=== PATIENT | female | born 1940 ===

== ENCOUNTER 2016-10-03 12:23 | Inpatient (IN) | payer MEDICARE, OTHER ==
[2016-10-03] MEDS ORDERED: Sodium Chloride 0.9% 500 ML IV STA (12:48)
--- NOTE | 2016-10-03 12:50 | ED PDOC ---
Arrival/HPI - General Chief Complaint: Abdominal Pain Time Seen by Provider: 10/03/16 12:25 Historian: Patient - History of Present Illness Narrative History of Present Illness (Text): 10/03/16 12:48 76 year old female whose past medical history includes hypertension, hysterectomy, triple bypass, presents to the emergency department with diarrhea , generalized weakness, and abdominal discomfort since this morning. Denies vomiting. No recent antibiotic use. No other complaints. Time/Duration: 24 hours Symptom Onset: Gradual Symptom Course: Unchanged Modifying Factors (Text): None Past Medical History - Provider Review Nursing Documentation Reviewed: Yes - Infectious Disease Hx of Infectious Diseases: None - Cardiac Hx Hypertension: Yes - Psychiatric Hx Substance Use: No - Surgical History Hx Coronary Artery Bypass Graft: Yes Hx Hysterectomy: Yes - Anesthesia Hx Anesthesia: Yes Hx Anesthesia Reactions: No Hx Malignant Hyperthermia: No - Suicidal Assessment Feels Threatened In Home Enviroment: No Family/Social History - Physician Review Nursing Documentation Reviewed: Yes Family/Social History: Unknown Family HX Smoking Status: Never Smoked Hx Alcohol Use: No Hx Substance Use: No Hx Substance Use Treatment: No Allergies/Home Meds Allergies/Adverse Reactions: Allergies No Known Allergies Allergy (Verified 10/03/16 12:38) Home Medications: Home Meds Medication Instructions Recorded Confirmed Nebivolol Hydrochloride [Bystolic] 10 mg PO DAILY 01/27/12 10/03/16 Valsartan [Diovan] 160 mg PO BID 01/27/12 10/03/16 Aspirin [Aspirin] 1 tab PO DAILY 08/18/13 10/03/16 Isosorbide Mononitrate [Isosorbide 1 tab PO DAILY 08/18/13 10/03/16 Mononitrate] Simvastatin [Simvastatin] 1 tab PO DAILY 08/18/13 10/03/16 Review of Systems - Physician Review All systems were reviewed & negative as marked: Yes - Review of Systems Constitutional: Other (Generalized weakness) Gastrointestinal: Abdominal Pain. absent: Vomiting Neurological: Dizziness Physical Exam Vital Signs Reviewed: Yes Vital Signs Temp Pulse Resp BP Pulse Ox 10/03/16 15:03 76 18 176/73 H 99 10/03/16 12:32 98.6 F 86 19 183/86 H 98 Temperature: Afebrile Blood Pressure: Hypertensive Pulse: Regular Respiratory Rate: Normal Appearance: Positive for: Well-Appearing, Non-Toxic, Uncomfortable Pain Distress: Mild Mental Status: Positive for: Alert and Oriented X 3 - Systems Exam Head: Present: Atraumatic, Normocephalic Pupils: Present: PERRL Extroacular Muscles: Present: EOMI Conjunctiva: Present: Normal Mouth: Present: Moist Mucous Membranes Neck: Present: Normal Range of Motion Respiratory/Chest: Present: Clear to Auscultation, Good Air Exchange. No: Respiratory Distress, Accessory Muscle Use Cardiovascular: Present: Regular Rate and Rhythm, Normal S1, S2. No: Murmurs Abdomen: Present: Tenderness (Mild nonfocal), Normal Bowel Sounds. No: Distention, Peritoneal Signs Back: Present: Normal Inspection Upper Extremity: Present: Normal Inspection. No: Cyanosis, Edema Lower Extremity: Present: Normal Inspection. No: Edema Neurological: Present: GCS=15, CN II-XII Intact, Speech Normal Skin: Present: Warm, Dry, Normal Color. No: Rashes Psychiatric: Present: Alert, Oriented x 3, Normal Insight, Normal Concentration Medical Decision Making ED Course and Treatment: Impression: 76 year old female whose past medical history includes hypertension , hysterectomy, triple bypass, presents to the emergency department with diarrhea, generalized weakness, and abdominal discomfort since this morning. Differential Diagnosis included but are not limited to: colitis, diverticulitis , uti, atypical cardiac Plan: -- CT Head, EKG -- Toradol -- Labs -- Reassess and disposition Progress Notes: PROCEDURE: CT Abdomen and Pelvis with contrast Hand Tile Maker : Elier Negron MD Report Date : 10/03/2016 14:27:30 IMPRESSION: Colonic diverticulosis with extensive pericolonic fat infiltration in the pelvis consistent with acute sigmoid colon diverticulitis. No gross abscess or pneumoperitoneum.. Diffuse circumferential bladder wall thickening may represent a superimposed element of cystitis. 10/03/16 15:49 pt with persistent pain, elderly with multiple comorbitites, needs iv antibiotics dr lyn accepts 10/03/16 15:52 - Lab Interpretations Lab Results: 10/03/16 13:04 10/03/16 13:04 Lab Results 10/03/16 13:04: Sodium 136, Potassium 4.1, Chloride 101, Carbon Dioxide 26, Anion Gap 13, BUN 15, Creatinine 0.8, Est GFR ( Amer) > 60, Est GFR (Non- Af Amer) > 60, Random Glucose 99, Calcium 9.1, Total Bilirubin 0.7, AST 26, ALT 28, Alkaline Phosphatase 64, Lactate Dehydrogenase 510, Total Creatine Kinase 66 , Troponin I < 0.01, Total Protein 7.7, Albumin 4.4, Globulin 3.4, Albumin/ Globulin Ratio 1.3, Amylase 68, Lipase 39 10/03/16 13:04: PT 10.8, INR 1.00, APTT 27.9 10/03/16 13:04: WBC 13.4 H D, RBC 4.16, Hgb 12.7, Hct 36.9, MCV 88.7, MCH 30.5, MCHC 34.4, RDW 14.1, Plt Count 217, MPV 9.3, Gran % 79.1 H, Lymph % (Auto) 10.6 L, [place] % (Auto) 9.0 H, Eos % (Auto) 1.1 L, Baso % (Auto) 0.2, Gran # 10.57 H, Lymph # 1.4, [place] # 1.2 H, Eos # 0.2, Baso # 0.03 - RAD Interpretation Radiology Orders: 10/03/16 12:48 ABD & PELVIS IV CONTRAST ONLY [CT] Stat - EKG Interpretation EKG Interpretation (Text): EKG shows NSR at [address]/T wave changes. Interpreted by me. Interpreted by ED Physician: Yes Type: 12 lead EKG - Medication Orders Current Medication Orders: Discontinued Medications Sodium Chloride (Sodium Chloride 0.9%) 500 mls @ 999 mls/hr IV .Q31M STA Stop: 10/03/16 13:18 Last Admin: 10/03/16 13:02 Dose: 999 mls/hr Piperacillin Sod/Tazobactam Sod (Zosyn 3.375 In Ns 100ml) 100 mls @ 200 mls/hr IVPB STAT STA PRN Reason: Protocol Stop: 10/03/16 14:57 Last Admin: 10/03/16 15:06 Dose: 200 mls/hr Iohexol (Omnipaque 350 100 Ml) Confirm Administered Dose 350 mg .ROUTE .STK-MED ONE Stop: 10/03/16 13:43 Ketorolac Tromethamine (Toradol) 30 mg IVP STAT STA Stop: 10/03/16 12:48 Last Admin: 10/03/16 13:02 Dose: 30 mg - Scribe Statement The provider has reviewed the documentation as recorded by the Rodo Valdivia Provider Scribe Attestation: All medical record entries made by the Rodo were at my direction and personally dictated by me. I have reviewed the chart and agree that the record accurately reflects my personal performance of the history, physical exam, medical decision making, and the department course for this patient. I have also personally directed, reviewed, and agree with the discharge instructions and disposition. Disposition/Present on Arrival - Present on Arrival Any Indicators Present on Arrival: No History of DVT/PE: No History of Uncontrolled Diabetes: No Urinary Catheter: No History of Decub. Ulcer: No History Surgical Site Infection Following: None - Disposition Have Diagnosis and Disposition been Completed?: Yes Diagnosis: Diverticulitis Disposition: HOSPITALIZED Disposition Time: 15:50 Patient Problems: Current Active Problems Problem Status Onset Diverticulitis Acute Condition: FAIR Referrals: Arelis Nuno, [Primary Care Provider] - Follow up with primary
[2016-10-03 13:05] LABS: ADD MANUAL DIFF? NO
[2016-10-03 13:09] LABS: BASO # 0.03 K/mm3 (0.0-2.0); BASO % 0.2 % (0.0-3.0); EOS # 0.2 (0.0-0.7); EOS % 1.1 % (1.5-5.0); GRAN # 10.57 (1.4-6.5); GRAN % 79.1 % (50.0-68.0); HEMATOCRIT 36.9 % (36.0-48.0); LYMPH # 1.4 (1.2-3.4); LYMPH % 10.6 % (22.0-35.0); MEAN CELL VOLUME 88.7 fL (80.0-105.0); MEAN CORPUSCULAR HEMOGLOBIN 30.5 pg (25.0-35.0); MEAN CORPUSCULAR HGB CONC 34.4 g/dl (31.0-37.0); MEAN PLATELET VOLUME 9.3 fl (7.0-11.0); MONO # 1.2 (0.1-0.6); PLATELET COUNT 217 10^3/uL (120.0-450.0); RED CELL DISTRIBUTION WIDTH 14.1 % (11.5-14.5); WHITE BLOOD COUNT 13.4 10^3/ul (4.5-11.0)
[2016-10-03 13:18] LABS: ALB/GLOB RATIO 1.3 (1.1-1.8); ALKALINE PHOSPHATASE 64 U/L (38-133); ALT/SGPT 28 U/L (7-56); AMYLASE 68 U/L (35-125); AST/SGOT 26 U/L (15-39); BILIRUBIN,TOTAL 0.7 mg/dL (0.2-1.3); BLOOD UREA NITROGEN 15 mg/dL (7-21); CALCIUM 9.1 mg/dL (8.4-10.5); CARBON DIOXIDE 26 mmol/L (21-33); CHLORIDE 101 mmol/L (98-107); GFR AFRICAN-AMERICAN > 60; GLUCOSE,RANDOM 99 mg/dL (70-110); LIPASE 39 U/L (23-300); POTASSIUM 4.1 mmol/L (3.6-5.0); SODIUM 136 mmol/L (132-148); TOTAL PROTEIN 7.7 g/dL (5.8-8.3)
[2016-10-03 13:19] LABS: PARTIAL THROMBOPLASTIN TIME 27.9 Seconds (23.7-30.8)
[2016-10-03] MEDS ORDERED: Iohexol 350 MG/100 ML VIAL ONE (13:42)
[2016-10-03 13:46] LABS: TROPONIN I < 0.01 ng/mL
[2016-10-03] MEDS ORDERED: Piperacillin/Tazobact 3.375 gm 100 ML IVPB STA (14:28)
--- NOTE | 2016-10-03 14:28 | CT ---
PROCEDURE: CT Abdomen and Pelvis with contrast HISTORY: abd pain, diarrhea COMPARISON: None. TECHNIQUE: Contrast dose: 100 cc of Omnipaque 300 Radiation dose: Total exam DLP = 872 mGy-cm. This CT exam was performed using one or more of the following dose reduction techniques: Automated exposure control, adjustment of the mA and/or kV according to patient size, and/or use of iterative reconstruction technique. FINDINGS: LOWER THORAX: Small hiatal hernia. LIVER: Unremarkable. No gross lesion or ductal dilatation. GALLBLADDER AND BILE DUCTS: Unremarkable. PANCREAS: Unremarkable. No gross lesion or ductal dilatation. SPLEEN: Unremarkable. ADRENALS: Unremarkable. No mass. KIDNEYS AND URETERS: Unremarkable. No hydronephrosis. No solid mass. VASCULATURE: Unremarkable. No aortic aneurysm. BOWEL: Colonic diverticulosis with extensive pericolonic fat infiltration in the pelvis consistent with acute sigmoid colon diverticulitis. No gross abscess or pneumoperitoneum.. No obstruction. No gross mural thickening. APPENDIX: Normal appendix. PERITONEUM: Unremarkable. No free fluid. No free air. LYMPH NODES: Unremarkable. No enlarged lymph nodes. BLADDER: Diffuse circumferential bladder wall thickening may represent a superimposed element of cystitis. REPRODUCTIVE: Hysterectomy. BONES: No acute fracture. OTHER FINDINGS: None. IMPRESSION: Colonic diverticulosis with extensive pericolonic fat infiltration in the pelvis consistent with acute sigmoid colon diverticulitis. No gross abscess or pneumoperitoneum.. Diffuse circumferential bladder wall thickening may represent a superimposed element of cystitis.
--- NOTE | 2016-10-03 15:42 | CARD ---
APPROVED REPORT EKG Measurement Heart [id number] CT [id number] <Conclusion> Normal sinus rhythm Nonspecific ST and T wave abnormality Abnormal ECG
[2016-10-03] MEDS ORDERED: HYDROmorphone 1 mg/ml ISec IVP PRN (17:28)
[2016-10-03] MEDS ORDERED: SIMVASTATIN PO SCH (17:30)
[2016-10-03] MEDS: Dextrose 5%/0.45% NS 1,000 ML IV SCH (17:55)
[2016-10-03] MEDS: METRONIDAZOLE IV SCH ×2 (17:59→23:19)
[2016-10-03 18:37] VITALS: BMI 35.5
[2016-10-03] MEDS ORDERED: Pneumococcal 23-Valent Vaccine IM ONE (18:37)
[2016-10-03 18:59] LABS: URINE BILIRUBIN NEGATIVE (NEGATIVE); URINE BLOOD TRACE-LYSED (NEGATIVE); URINE GLUCOSE (UA) NEGATIVE (NEGATIVE); URINE KETONE NEGATIVE (NEGATIVE); URINE LEUKOCYTE ESTERASE SMALL Leu/uL (NEGATIVE); URINE PROTEIN NEGATIVE mg/dL (<30 mg/dL); URINE UROBILINOGEN 0.2 E.U./dL (<1 E.U./dL)
[2016-10-03 19:07] LABS: URINE APPEARANCE CLEAR (CLEAR); URINE COLOR YELLOW (YELLOW)
[2016-10-03 19:14] LABS: URINE WBC 25 - 30 /hpf (0-6)
[2016-10-03 19:15] LABS: URINE BACTERIA MOD (NEG)
[2016-10-03] MEDS: metroNIDAZOLE IV 500 mg/100 ml 500 MG/100 ML BAG IV SCH (23:35)
--- NOTE | 2016-10-04 00:58 | HP ---
HISTORY OF PRESENT ILLNESS: The patient is a 76-year-old patient of Dr. Nuno, who states she was oka y up until last night. This morning, she woke up with abdominal discomfort. She had diarrhea. She felt a little nauseous. Denies any blood in the stool. Only complaining of abdominal discomfort. No history of fever, no chills. Did not use antibiotics recently. PAST MEDICAL HISTORY: Significant for: 1. Hypertension. 2. History of coronary artery disease, status post open heart surgery. 3. Hyperlipidemia. PAST SURGICAL HISTORY: Significant for hysterectomy and open heart surgery. ALLERGIES: She is not allergic to any medications. MEDICATIONS AT HOME: She is on Diovan 160 daily, simvastatin 80 mg daily, Bystolic 10 mg daily, isos orbide 30 mg daily, Lasix 40 mg daily, Coreg 12.5 twice a day, aspirin 81 daily. SOCIAL HISTORY: She lives with her family. Denies smoking, drinking or alcohol abuse. REVIEW OF SYSTEMS: Significant for generalized weakness and diarrhea since morning. PHYSICAL EXAMINATION: GENERAL: She is awake and alert, communicative. VITAL SIGNS: She is afebrile, pulse 80, respirations 18, blood pressure 133/58. LUNGS: Bilateral fair airflow, no rhonchi or crackle. HEART: S1, S2 audible. No murmur. ABDOMEN: Soft, slight left lower quadrant discomfort. No rebound, no guarding. NEUROLOGIC: She is awake and alert, communicative. Moves all extremities. LABORATORY DATA: WBC 13.4, hemoglobin 12.7, hematocrit 36.9, platelet 217. PT 10.8, INR , PTT 27.9. Chemistry: Sodium 136, potassium 4.1, chloride 101, CO2 26, BUN 15, creatinine 0.8, blood sug ar of 99. LFTs are within normal limits. Had CT scan of the abdomen and pelvis done that shows exte nsive diverticulosis with pericolonic fat infiltration in the pelvis, consistent with acute sigmoid c olonic diverticulitis, no abscess and pneumoperitoneum. There is diffuse circumferential bladder wal l thickening, possible cystitis. ASSESSMENT: 1. Sigmoid diverticulitis. 2. Coronary artery disease, status post open heart surgery. 3. Hyperlipidemia. 4. History of diverticulosis. 5. Leukocytosis. PLAN: We will start patient on IV fluid, IV antibiotics. We will give her analgesic as needed. We will start on metronidazole and Rocephin. Start her on Protonix and analgesic as needed. We will fo llow up CBC, CMP in a.m. Dr. Hoffmann for consult. Jessy Jacome MD cc: [phone] TT: 10/04/2016 00:57:19 ln
[2016-10-04] MEDS: metroNIDAZOLE IV 500 mg/100 ml 500 MG/100 ML BAG IV SCH ×3 (05:27→21:32)
[2016-10-04] MEDS: Dextrose 5%/0.45% NS 1,000 ML IV SCH ×2 (05:28→19:18)
[2016-10-04] MEDS: cefTRIAXone 1 gm 1 G/100 ML BAG IVPB SCH (10:46)
--- NOTE | 2016-10-04 13:28 | PN ---
DATE: 10/04/2016 The patient is a 76-year-old, seen and examined, sitting in chair, states she is hungry. Her pain george s improved significantly. No nausea, vomiting, no diarrhea. PHYSICAL EXAMINATION: VITAL SIGNS: She is afebrile, pulse 75, respirations 19, blood pressure 143/74. LUNGS: Bilateral fair airflow, no rhonchi or crackle. HEART: S1, S2 audible. ABDOMEN: Soft, slight left lower quadrant palpable discomfort. No rebound, no guarding. NEUROLOGIC: She is awake and alert and communicative. EXTREMITIES: Bilateral legs +1 edema. LABORATORY EXAMINATION: There is no new lab available today. ASSESSMENT: 1. Sigmoid diverticulitis. 2. Dense diverticulosis. 3. Hypertension. 4. Coronary artery disease, status post open heart surgery in remote past. 5. Hyperlipidemia. PLAN: The patient is waiting to have some crackers. We will give her, but keep her on clear liquid for another 24 hours. She is on IV Flagyl and Rocephin. We will continue that. Continue her on ciera ar liquid. Monitor her CBC and CMP in a.m. Jessy Jacome MD cc: [phone] TT: 10/04/2016 13:28:41 Confirmation # [id number] Dictation # [id number] en
[2016-10-05] MEDS: metroNIDAZOLE IV 500 mg/100 ml 500 MG/100 ML BAG IV SCH ×3 (05:22→21:35)
--- NOTE | 2016-10-05 07:35 | CON ---
DATE: 10/04/2016 This patient was seen and evaluated earlier today. Discussed with nursing staff again. This is a 76-year-old patient with a past medical history of coronary artery disease, hypertension, dyslipidemia, presented with acute onset of abdominal pain of 1 day duration. The pain mainly in the lower abdomen towards the left side. She had episode of diarrhea before and had no bleeding. OTHER PAST MEDICAL HISTORY: Significant as above, history of colonoscopy many years ago. ALLERGIES: No known drug allergies. SOCIAL HISTORY: Denies smoking. No alcohol. REVIEW of SYSTEMS: Positive as above. Other systems reviewed. PHYSICAL EXAMINATION: GENERAL: The patient is lying on the bed, not in acute distress. VITAL SIGNS: Temperature is 98.4, blood pressure is 139/51, pulse is 62, respirations 19, O2 saturation 95. HEENT: Atraumatic, anicteric. NECK: Supple. HEART: S1, S2 heard. LUNGS: Bilateral air entry present. ABDOMEN: Soft. There is no mass palpable. Tenderness present in the left lower quadrant area and suprapubic area. There is no rebound or guarding. EXTREMITIES: No cyanosis, no clubbing. LABORATORY DATA: WBC is 13.4, hemoglobin 12.7, hematocrit 39.6, platelets 217. Chemistry is essentially unremarkable. IMPRESSION: This 76-year-old patient admitted with acute onset of lower abdominal pain mainly to the left side. CT was reviewed, suggestive of acute diverticulitis. Her other comorbidities include hypertension, coronary artery disease and dyslipidemia. RECOMMENDATIONS: 1. Clear liquid diet. 2. Continue with antibiotics. 3. Will continue DVT prophylaxis. Thank you very much for allowing me to participate in the care of this patient. Will continue to closely follow up her care and suggest further management based on the clinical course. The patient would benefit from elective colonoscopy after 4-6 weeks' time. Daysi Hoffmann MD cc: [phone] TT: 10/05/2016 07:30:59 Confirmation # [id number] Dictation # [id number] rosemary JOY
[2016-10-05] MEDS: cefTRIAXone 1 gm 1 G/100 ML BAG IVPB SCH (09:45)
[2016-10-05] MEDS: Dextrose 5%/0.45% NS 1,000 ML IV SCH (09:47)
--- NOTE | 2016-10-05 12:01 | PN ---
DATE: 10/05/2016 Seen and examined at the bedside this morning, out of bed in the chair. Reports that abdominal pain is better. No fever or chills. Tolerating the clear liquids so far. No reports of any fever or chi lls. VITAL SIGNS: Temperature 98.4, blood pressure is 163/59, pulse 68, respirations 19, 95% room air. No new labs are noted for today. PHYSICAL EXAMINATION: HEENT: Sclera is anicteric. NECK: Supple. CARDIAC: S1, S2. LUNG SOUNDS: With decreased breath sounds at the bases, but good air entry, no rales or wheeze. ABDOMEN: With bowel sounds, soft, some tenderness to the left lower quadrant, but is much improved. EXTREMITIES: No edema. ASSESSMENT: A 76-year-old with acute onset of lower abdominal pain, found to have acute diverticulit is. Her other comorbidities are coronary artery disease and hypertension. PLAN: We will slowly advance her diet to a full liquid today since her abdominal pain is better. Co ntinue the IV antibiotics. She is on ceftriaxone and Flagyl. Continue gastrointestinal prophylaxis, Protonix. The patient is on aspirin and patient would benefit from elective outpatient colonoscopy in 4-6 weeks' time after resolution of diverticulitis. Discussed with the patient. The patient was seen and case discussed with Dr. Hoffmann. Molly WORRELL cc: [phone] TT: 10/05/2016 12:00:46 Confirmation # [id number] Dictation # [id number] en
[2016-10-05] MEDS: Potassium Chloride 20 MEQ in Dextrose 5%/0.45% NS 1,000 ML IV SCH (12:06)
--- NOTE | 2016-10-05 14:38 | PN ---
The patient is a 76-year-old, seen and examined, sitting in chair, seems to be comfortable. She states she is hungry. Pain is almost gone. She wants to eat solid food. PHYSICAL EXAMINATION: VITAL SIGNS: She is afebrile, pulse 68, respirations 19, blood pressure 163/59. LUNGS: Bilateral fair airflow, no rhonchi or crackle. HEART: S1, S2 audible. ABDOMEN: Soft, obese, nontender. Slight palpable discomfort in the left lower quadrant area. No rebound, no guarding. NEUROLOGIC: She is awake and alert, communicative, ambulatory. LABORATORY EXAMINATION: WBC 13.4, hemoglobin 12, hematocrit 36, platelet 217. Chemistry: Sodium 136, potassium 4.1. ASSESSMENT: 1. Sigmoid diverticulitis. 2. Morbid obesity. 3. Hypertension. 4. Coronary artery disease. PLAN: We will advance diet to full liquid with a few crackers in between. We will continue on IV fluid. The patient is refusing to have blood work done. She states she does not have good IV access and does not want to be poked since she is n.p.o., so I will empirically give her 20 mEq of potassium in each liter and we will advance her diet tomorrow. If she remains pain free, we will send her home on p.o. antibiotic and she will have colonoscopy done as outpatient. Jessy Jacome MD cc: [phone] TT: 10/05/2016 14:37:43 en MTDD
[2016-10-06] MEDS: Potassium Chloride 20 MEQ in Dextrose 5%/0.45% NS 1,000 ML IV SCH ×2 (00:33→13:55)
--- NOTE | 2016-10-06 02:42 | PN ---
DATE: 10/05/2016 ADDENDUM: SUBJECTIVE: This is an addendum to the GI progress report dictated by Molly Castañeda APN. The patient is feeling better. Diet has been advanced to full liquid diet. PLAN: Will probably advance to a low residue soft diet tomorrow. I have discussed with the patient's daughter at length. The patient needs to complete the antibiotic therapy, moderate to severe diverticulitis. The CT review. The reasonable thing is to consider a low residue diet initially, then change it to high fiber diet, but, the patient needs to have a colonoscopy in about 4-5 weeks ' time to rule out colonic lesion. Thank you very much for allowing us to participate in the care of the patient. Daysi Hoffmann MD cc: [phone] TT: 10/06/2016 02:42:05 Confirmation # [id number] Dictation # [id number] rosemary JOY
[2016-10-06] MEDS: metroNIDAZOLE IV 500 mg/100 ml 500 MG/100 ML BAG IV SCH ×3 (05:23→21:32)
[2016-10-06] MEDS: cefTRIAXone 1 gm 1 G/100 ML BAG IVPB SCH (09:41)
--- NOTE | 2016-10-06 16:27 | PN ---
DATE: 10/06/2016 SUBJECTIVE: The patient is 76 years old, seen and examined, sitting in chair, anxious to eat solid f ood. She states her pain is almost gone. She is hungry. PHYSICAL EXAMINATION: VITAL SIGNS: She is afebrile, pulse 66, respirations 20, blood pressure 172/95, respirations 20. HEAD AND NECK: She has symmetrical face. Nonicteric sclerae. [place] conjunctivae. LUNGS: Bilateral good airflow, no rhonchi or crackle. HEART: S1, S2 audible. ABDOMEN: Soft, nontender, no rebound, no guarding. NEUROLOGIC: The patient is awake and alert, communicative, ambulatory. LABORATORY EXAMINATION: There is no new lab available. The patient has been refusing lab because janet chester does want to get stuck multiple times since she has poor venous access. ASSESSMENT: 1. Sigmoid diverticulitis. 2. Morbid obesity. 3. Hypertension. 4. Coronary artery disease. PLAN: Currently, patient is on metronidazole. She is getting isosorbide, Coreg, and Rocephin. Will advance her diet to a soft, low fiber diet, and if she remains stable will switch her antibiotic to p.o. and send her home in a.m. Jessy Jacome MD cc: [phone] TT: 10/06/2016 16:26:53 Confirmation # [id number] Dictation # [id number] louie
--- NOTE | 2016-10-06 18:05 | CP.PCM.PN ---
Subjective - Date & Time of Evaluation Date of Evaluation: 10/06/16 Time of Evaluation: 11:35 - Subjective Subjective: Seen and examined at bedside earlier today. Had loose BM, no bleeding, no abdominal pain, tolerating full liquids. No new complaints. Objective - Vital Signs/Intake and Output Vital Signs (last 24 hours): Temp Pulse Resp BP Pulse Ox 97.7 F 66 18 188/95 H 96 10/06/16 16:00 10/06/16 16:00 10/06/16 16:00 10/06/16 16:00 10/06/16 16:00 Intake and Output: 10/06/16 10/06/16 06:59 18:59 Intake Total 1860 600 Balance 1860 600 - Medications Medications: Current Medications Acetaminophen (Tylenol 325mg Tab) 650 mg PO Q6H PRN PRN Reason: Fever >100.4 F Last Admin: 10/04/16 10:51 Dose: 650 mg Aspirin (Aspirin Chewable) 81 mg PO DAILY [facility] Last Admin: 10/06/16 09:41 Dose: 81 mg Atorvastatin Calcium (Lipitor) 40 mg PO HS [facility] Last Admin: 10/05/16 21:34 Dose: 40 mg Carvedilol (Coreg) 12.5 mg PO BID [facility] Last Admin: 10/06/16 17:21 Dose: 12.5 mg Hydromorphone HCl (Dilaudid) 1 mg IVP Q4H PRN PRN Reason: Pain, moderate (4-7) Ceftriaxone Sodium (Rocephin 1 Gram Ivpb) 1 g in 100 mls @ 100 mls/hr IVPB DAILY [facility] PRN Reason: Protocol Last Admin: 10/06/16 09:41 Dose: 100 mls/hr Metronidazole (Flagyl) 500 mg in 100 mls @ 100 mls/hr IV Q8 JACKIE PRN Reason: Protocol Last Admin: 10/06/16 13:54 Dose: 100 mls/hr Potassium Chloride 20 meq/ (Dextrose/Sodium Chloride) 1,010 mls @ 100 mls/hr IV .Q10H6M [facility] Last Admin: 10/06/16 13:55 Dose: 100 mls/hr Isosorbide Mononitrate (Imdur) 30 mg PO DAILY [facility] Last Admin: 10/06/16 09:41 Dose: 30 mg Ondansetron HCl (Zofran Inj) 4 mg IVP Q6H PRN PRN Reason: Nausea/Vomiting Pantoprazole Sodium (Protonix Inj) 40 mg IVP DAILY JACK[facility] Last Admin: 10/06/16 09:41 Dose: 40 mg - Labs Labs: PT 10.8 Seconds (9.9-11.8) 10/03/16 13:04 INR 1.00 (0.93-1.08) 10/03/16 13:04 APTT 27.9 Seconds (23.7-30.8) 10/03/16 13:04 - Constitutional Appears: No Acute Distress - Head Exam Head Exam: NORMOCEPHALIC - Eye Exam Eye Exam: Normal appearance. absent: Scleral icterus - ENT Exam ENT Exam: Mucous Membranes Moist - Neck Exam Neck Exam: Normal Inspection - Respiratory Exam Respiratory Exam: Clear to Ausculation Bilateral, NORMAL BREATHING PATTERN. absent: Respiratory Distress - Cardiovascular Exam Cardiovascular Exam: +S1, +S2 - GI/Abdominal Exam GI & Abdominal Exam: Soft, Normal Bowel Sounds. absent: Guarding, Tenderness, Organomegaly, Rebound - Extremities Exam Extremities Exam: absent: Calf Tenderness, Pedal Edema - Neurological Exam Neurological Exam: Alert, Awake, Oriented x3 Assessment and Plan - Assessment and Plan (Free Text) Assessment: ASSESSMENT: Acute Devierticulitis Diarrhea, r/o cdiff HTN HLD PLAN: advance diet to soft low residual request aluminum hydroxide process operator to review diet for diverticulits, low residual initially than slowly advance to high fiber. continue antibiotics PPI outpatient elective outpateint 4-6 weeks, discus with patient. Seen and discussed with Dr. Torres.
--- NOTE | 2016-10-06 19:47 | PN ---
DATE: 10/06/2016 ADDENDUM: This is an addendum to the GI progress report dictated by Molly Castañeda APN. The patient george s now been advanced to a soft diet. Abdomen is soft, there is no tenderness. The patient's daughter was at bedside; I discussed with her. The patient needs to be on a low-residue diet initially then change to a high fiber diet. Recommended the patient to complete the antibiotic course as an outpati ent and would recommend colonoscopic evaluation in about 4 weeks' time. Thank you very much for allowing us to participate in the care of the patient. Daysi Hoffmann MD cc: [phone] TT: 10/06/2016 19:47:15 Confirmation # [id number] Dictation # [id number] dn
[2016-10-07] MEDS: Potassium Chloride 20 MEQ in Dextrose 5%/0.45% NS 1,000 ML IV SCH (03:03)
[2016-10-07] MEDS: metroNIDAZOLE IV 500 mg/100 ml 500 MG/100 ML BAG IV SCH (05:26)
[2016-10-07 08:38] VITALS: BP 184/78; PULSE 68; RESP 20; TEMP 97.8; O2SAT 97
[2016-10-07] MEDS: cefTRIAXone 1 gm 1 G/100 ML BAG IVPB SCH (09:11)
--- NOTE | 2016-10-07 10:15 | CP.PCM.PN ---
Subjective - Date & Time of Evaluation Date of Evaluation: 10/07/16 Time of Evaluation: 07:35 - Subjective Subjective: Seen and examined this am, tolerating solid food, no N/V or abdominal pain. No diarrhea. No overt GI bleeding. No new complaints, want to go home. Objective - Vital Signs/Intake and Output Vital Signs (last 24 hours): Temp Pulse Resp BP Pulse Ox 97.8 F 68 20 184/78 H 97 10/07/16 06:00 10/07/16 09:08 10/07/16 06:00 10/07/16 09:08 10/07/16 06:00 Intake and Output: 10/07/16 10/07/16 06:59 18:59 Intake Total 780 120 Balance 780 120 - Medications Medications: Current Medications Acetaminophen (Tylenol 325mg Tab) 650 mg PO Q6H PRN PRN Reason: Fever >100.4 F Last Admin: 10/04/16 10:51 Dose: 650 mg Aspirin (Aspirin Chewable) 81 mg PO DAILY [facility] Last Admin: 10/07/16 09:10 Dose: 81 mg Atorvastatin Calcium (Lipitor) 40 mg PO HS [facility] Last Admin: 10/06/16 21:32 Dose: 40 mg Carvedilol (Coreg) 12.5 mg PO BID [facility] Last Admin: 10/07/16 09:08 Dose: 12.5 mg Hydromorphone HCl (Dilaudid) 1 mg IVP Q4H PRN PRN Reason: Pain, moderate (4-7) Ceftriaxone Sodium (Rocephin 1 Gram Ivpb) 1 g in 100 mls @ 100 mls/hr IVPB DAILY [facility] PRN Reason: Protocol Last Admin: 10/07/16 09:11 Dose: 100 mls/hr Metronidazole (Flagyl) 500 mg in 100 mls @ 100 mls/hr IV Q8 [facility] PRN Reason: Protocol Last Admin: 10/07/16 05:26 Dose: 100 mls/hr Potassium Chloride 20 meq/ (Dextrose/Sodium Chloride) 1,010 mls @ 100 mls/hr IV .Q10H6M [facility] Last Admin: 10/07/16 03:03 Dose: 100 mls/hr Isosorbide Mononitrate (Imdur) 30 mg PO DAILY [facility] Last Admin: 10/07/16 09:08 Dose: 30 mg Ondansetron HCl (Zofran Inj) 4 mg IVP Q6H PRN PRN Reason: Nausea/Vomiting Pantoprazole Sodium (Protonix Inj) 40 mg IVP DAILY [facility] Last Admin: 10/07/16 09:11 Dose: 40 mg - Labs Labs: PT 10.8 Seconds (9.9-11.8) 10/03/16 13:04 INR 1.00 (0.93-1.08) 10/03/16 13:04 APTT 27.9 Seconds (23.7-30.8) 10/03/16 13:04 - Constitutional Appears: No Acute Distress - Head Exam Head Exam: NORMOCEPHALIC - Eye Exam Eye Exam: Normal appearance. absent: Scleral icterus - ENT Exam ENT Exam: Mucous Membranes Moist - Neck Exam Neck Exam: Normal Inspection - Respiratory Exam Respiratory Exam: Clear to Ausculation Bilateral, NORMAL BREATHING PATTERN. absent: Respiratory Distress - Cardiovascular Exam Cardiovascular Exam: +S1, +S2 - GI/Abdominal Exam GI & Abdominal Exam: Soft, Normal Bowel Sounds. absent: Guarding, Tenderness, Organomegaly, Rebound - Extremities Exam Extremities Exam: absent: Calf Tenderness, Pedal Edema - Neurological Exam Neurological Exam: Alert, Awake, Oriented x3 Assessment and Plan - Assessment and Plan (Free Text) Assessment: ASSESSMENT: Improving Acute Devierticulitis Diarrhea, no more episode HTN HLD PLAN: continue soft low residual diet request senior project accountant to review diet for diverticulitis, low residual initially than slowly advance to high fiber. continue antibiotics, on Flagyl and rocephin PPI From GI standpoint patient may be discharged home on oral antibiotics and can FU outpatient for elective outpatient colonoscopy 4-6 weeks, discus with patient Seen and discussed with Dr. Hoffmann.
--- NOTE | 2016-10-07 20:23 | DS ---
The patient is a 76-year-old, seen and examined, sitting in chair, seems to be comfortable, anxious t o go home, eating and tolerating. No nausea, vomiting, no diarrhea. PHYSICAL EXAMINATION: VITAL SIGNS: She is afebrile, pulse 60, respiration 20, blood pressure 184/70. LUNGS: Bilateral fair airflow, no rhonchi or crackle. HEART: S1, S2 audible. No murmur. ABDOMEN: Soft, nontender, no rebound, no guarding. NEUROLOGIC: The patient is awake and alert, communicative, ambulatory. HOSPITAL COURSE: The patient was admitted with left lower quadrant discomfort, found to have signifi cant sigmoid diverticulitis. Has been on clear liquids, IV Flagyl and was given followed by Brittney paredes and responded well, pain free today. DISCHARGE DIAGNOSES: 1. Sigmoid diverticulitis. 2. Morbid obesity. 3. Hypertension. 4. Coronary artery disease. 5. Hyperlipidemia. PLAN: The patient will be discharged home on Flagyl 500 t.i.d. for a week and Cipro 500 twice a day for a week. She is advised to follow up with Dr. Nuno within a week and she is recommended to have c olonoscopy done in 6-8 weeks after completing the course of antibiotic and she will resume all her medication as prior to admission. She will have low residue 2 gram sodium diet upon discharge. Jessy Jacome MD cc: [facility] TT: 10/07/2016 20:22:34 rosemary
--- NOTE | 2016-10-08 07:46 | PN ---
DATE: 10/07/2016 ADDENDUM: This is an addendum to the GI progress report dictated by Molly Castañeda APN. The patient was seen and evaluated earlier today. The patient is feeling better, tolerating the diet and the patient can be discharged home with low residue diet initially then a high fiber diet. Disc ussed with nursing staff to have the dietitian evaluate and see the patient. The patient would benef it from the elective colonoscopy in 4 weeks' time. The patient was advised to call our office and manohar lee for arranging the colonoscopy. This was explained to the patient's daughter who was with the patient yesterday at bedside. Thank you very much for allowing us to participate in the care of this patient. Daysi Hoffmann MD cc: [id number] TT: 10/07/2016 19:17:44 Confirmation # [id number] Dictation # [id number]
== END 2016-10-07 13:14 | disposition home or self-care (01) | DRG 392 ==
LOC: ED 12:23 → ERH 15:49 → 3RSO 16:51
PROVIDERS: ADMIT Internal Medicine; ATTEND Internal Medicine
DX: K57.32 Diverticulitis of large intestine without perforation or abscess without bleeding (principal); E66.01 Morbid (severe) obesity due to excess calories; I10 Essential (primary) hypertension; I25.10 Atherosclerotic heart disease of native coronary artery without angina pectoris; E78.5 Hyperlipidemia, unspecified; D72.829 Elevated white blood cell count, unspecified; Z79.82 Long term (current) use of aspirin; Z79.899 Other long term (current) drug therapy; Z90.710 Acquired absence of both cervix and uterus; Z95.1 Presence of aortocoronary bypass graft; R53.1 Weakness; K44.9 Diaphragmatic hernia without obstruction or gangrene; Z68.35 Body mass index [BMI] 35.0-35.9, adult

== ENCOUNTER 2016-12-11 08:48 | Day surgery (SDC) | payer MEDICARE ==
[2016-12-03 10:27] VITALS: BMI 34.7
[2016-12-11] MEDS ORDERED: Propofol 10 mg/ml Inj (20 ML) ONE (12:03)
[2016-12-11] MEDS ORDERED: Etomidate 20 mg/10ml Inj IV ONE (12:04)
[2016-12-11] MEDS ORDERED: Sodium Chloride 0.9% 1,000 ML IV SCH (12:15)
[2016-12-11 12:46] VITALS: RESP 18
[2016-12-11 13:50] VITALS: TEMP 98; O2SAT 96
[2016-12-11 14:18] VITALS: BP 140/83; PULSE 65
== END 2016-12-11 14:31 | disposition home or self-care (01) ==
LOC: ENDO 08:48
PROVIDERS: ATTEND Internal Medicine Gastroenterology
DX: K57.30 Diverticulosis of large intestine without perforation or abscess without bleeding (principal); K63.5 Polyp of colon; K64.8 Other hemorrhoids
CPT/HCPCS: 45380; 87324; 88305; J2001; J2704; J7040 ×2

== ENCOUNTER 2018-08-11 09:09 | Outpatient (CLI) | payer MEDICARE | END 2018-08-11 09:10 | disposition home or self-care (01) | LOC: RAD 09:09 ==

== ENCOUNTER 2018-09-19 12:40 | Outpatient (CLI) | payer MEDICARE | END 2018-09-19 12:41 | disposition home or self-care (01) | LOC: RAD 12:40 ==